=== PATIENT | male | born 1940 | race Caucasian/White ===

== ENCOUNTER 2021-05-02 09:05 | Observation (INO) | payer MEDICARE, OTHER, SELFPAY ==
[2021-05-02] VITALS (7 sets, daily range): BP systolic 111–151; BP diastolic 71–102; PULSE 70–116; RESP 16–23; TEMP 36.3–37.2; O2SAT 95–100
[2021-05-02 09:26] LABS: Basophils Absolute Auto 0.1 K/mm3 (0.0-0.1); Eosinophils Absolute Auto 0.3 K/mm3 (0-0.3); Eosinophils Percent Auto 3.3 % (0-4.4); Hematocrit 45.2 % (42.0-52.0); Hemoglobin 14.6 g/dL (14.0-18.0); Immature Granulocyte Absolute 0.04 K/mm3 (0.00-0.031); Immature Granulocyte Percent A 0.5 % (0-0.5); Lymphocytes Absolute Auto 1.59 K/mm3 (0.9-3.2); Lymphocytes Percent Auto 19.3 % (18.3-44.2); Mean Corpuscular HGB Conc 32.3 g/dl (32-36); Mean Corpuscular Hemoglobin 29.9 pg (26-34); Mean Corpuscular Volume 92.6 fl (80-100); Mean Platelet Volume 9.8 fl (7.4-10.4); Monocytes Absolute Auto 0.9 K/mm3 (0.1-0.6); Monocytes Percent Auto 11.1 % (2.6-8.5); Neutrophils Absolute Auto 5.3 K/mm3 (1.3-6.7); Neutrophils Percent Auto 64.8 % (45.5-73.1); Platelet Count Result 180 k/mm3 (150-375); Red Blood Count 4.88 M/mm3 (4.6-6.20); Red Cell Distribution Width 13.4 % (11.5-14.5); White Blood Count 8.2 K/mm3 (4.5-10.0)
[2021-05-02 09:34] LABS: Alanine Aminotransferase 26 U/L (4-50); Albumin Level 3.7 g/dL (3.5-5.1); Alkaline Phosphatase 106 U/L (38-126); Anion Gap 9 mmol/L (8-16); Aspartate Amino Transferase 24 U/L (17-59); Bilirubin,Total 0.9 mg/dL (0.2-1.3); Blood Urea Nitrogen 26 mg/dL (9-20); Calcium 8.9 mg/dL (8.4-10.2); Carbon Dioxide 22 mmol/L (22-30); Chloride 109 mmol/L (98-107); Estimated CRCL calculation 64 ml/min; Estimated Glomerular Filt Rate > 60; Glucose 100 mg/dL (65-110); Potassium 4.4 mmol/L (3.4-5.0); Sodium 140 mmol/L (137-145)
[2021-05-02 09:39] LABS: INR 1.5; Prothrombin Time 17.4 Seconds (11.1-14.7)
--- NOTE | 2021-05-02 10:30 | PC.NURSE ---
Informed Dr bishop pt needs evaluated
--- NOTE | 2021-05-02 11:25 | PC.NURSE ---
Informed Dr Riggs - pt here over 2 hours needs to be evaluated.
--- NOTE | 2021-05-02 11:39 | ED.GENADULT ---
HPI - General Adult General Chief complaint: GI Bleed Stated complaint: Rectal Bleeding Time Seen by Provider: 05/02/21 10:26 Source: patient History of Present Illness HPI narrative: Patient is a 80 y/o male complaining of rectal bleeding since this morning. He states that bleeding consists of bright red blood. He has had 4 episodes of bleeding. He is on Xarelto for A fib, which may have exacerbated his bleeding. Related Data Home Medications Medication Instructions Recorded Confirmed rivaroxaban 20 mg tablet 20 mg PO DAILY 09/07/19 06/21/20 Allergies Allergy/AdvReac Type Severity Reaction Status Date / Time pollen extracts Allergy Unknown Sneezing Verified 05/02/21 15:22 erythromycin base AdvReac Unknown Nausea Verified 05/02/21 15:22 Review of Systems Constitutional: Constitutional: Denies chills, Denies fever(s), Denies headache(s) and Denies weakness Eyes: Eyes: Denies blurry vision ENT: Denies headache(s) and Denies neck pain Cardiovascular: Cardiovascular: Denies chest pain and Denies dyspnea Respiratory: Respiratory: Denies cough and Denies dyspnea Gastrointestinal: Gastrointestinal: Denies abdominal pain, Reports hematochezia, Denies diarrhea, Denies nausea and Denies vomiting Genitourinary: Genitourinary: Denies hematuria and Denies dysuria Musculoskeletal: Musculoskeletal: Denies back pain and Denies neck pain Neurologic: Denies headache(s) and Denies weakness PMFSH Surgical History Surgical History H/O arthroscopy H/O cataract extraction H/O spinal fusion History of appendectomy History of knee replacement History of knee replacement Family History Family History Mother Hypertension Other Family history of allergic disorder No family history of cardiovascular disease Social History Social History Smoking status: Never smoker Alcohol intake: current Drinks per week: 7 Substance use: never Gender identity (if verbalized by the patient): Male Spiritual care concerns: No Exam Const: General: no acute distress and well developed Orientation/consciousness: oriented to person, oriented to place, oriented to time and patient oriented x3 HENMT: Head: normocephalic Ears: external ears normal General nose exam: Normal external nose present Eyes: General: appearance normal, both eyes and all related structures Conjunctivae: conjunctivae normal Neck: Neck: normal visual inspection and full ROM Chest: Chest palpation & inspection: normal inspection of the chest and no tenderness Resp: Effort & Inspection: normal respiratory effort Auscultation: clear to auscultation bilaterally Cardio: Rate: regular rate Rhythm: abnormal rhythm irregularly irregular GI: GI Palp: No abdominal tenderness and Yes Soft to palpation Rectal Exam: Abnormal stool present seema blood Skin: General skin exam: normal color and turgor normal Neuro: General: oriented to person, oriented to place, oriented to time and patient oriented x3 Cognition (Neuro): normal cognition Extrem: General: normal to inspection, full ROM and no pedal edema Psych: Appearance: grossly normal Mental Status: mental status grossly normal Affect: normal affect Course Consultations Consultation #1: Discussed with Dr. Farmer, who agrees to consult. Date: 05/02/21 Time: 11:45 Consultation #2: Discussed with Dr. Saravia, who agrees to admit. Date: 05/02/21 Time: 12:54 Vital Signs Vital signs: Vital Signs Temperature 37.2 C 05/02/21 09:10 Pulse Rate 107 H 05/02/21 09:10 Respiratory Rate 23 H 05/02/21 09:10 Blood Pressure 151/102 H 05/02/21 09:10 Pulse Oximetry 97 05/02/21 09:10 Temperature 37.2 C 05/02/21 09:10 Pulse Rate 101 H 05/02/21 13:49 Respiratory Rate 16 05/02/21 13:49 Blood Pressure 135/88 05/02/21 13:49 Pulse
--- NOTE | 2021-05-02 11:41 | ECG_ITS ---
Measurements Intervals [place] Rate: 83 P: ME: 0 QRS: -14 QRSD: 90 T: -1 QT: 391 QTc: 462 Interpretive Statements ATRIAL FIBRILLATION BORDERLINE T WAVE ABNORMALITY- ANT/INF LEADS ABNORMAL ECG Electronically Signed On 05-02-2021 13:13:42 CDT by Blair Fernandez D.O.
[2021-05-02] MEDS: SODIUM CHLORIDE 0.9% IV 1,000 ML 999 ML IV CONT (11:50)
[2021-05-02 13:33] LABS: Hemoglobin 14.2 g/dL (14.0-18.0)
--- NOTE | 2021-05-02 15:15 | ADMGEN ---
This patient, Dion Amaya, was admitted to Medical Room 241-. Patient/family oriented to hospital policies and general routines including ID bracelet, bed and alarms, visiting hours, pain management, procedures, bathroom and other care routines, personal items, smoking policy, room service/diet, and visiting hours. Information on how to activate the Rapid Response Team has been discussed. Patient/Family are encouraged to report perceived risks to care and to ask questions if they do not understand what they are told or what they should do.
--- NOTE | 2021-05-02 16:21 | WPDGICN ---
Assessment and Plan Assessment and plan (1) Rectal bleeding: Code(s): K62.5 - Hemorrhage of anus and rectum Status: Acute Assessment and Plan: several episodes of rectal bleeding, could be perianal but also history of colon diverticulosis- patient is agreeable to have colonoscopy tomorrow. Will order bowel prep. hold xarelto for now (2) GI bleed: Qualifiers: GI bleed type/associated pathology: unspecified gastrointestinal hemorrhage type Qualified Code(s): K92.2 - Gastrointestinal hemorrhage, unspecified Code(s): K92.2 - Gastrointestinal hemorrhage, unspecified Status: Acute Assessment and Plan: trend hb, supportive care (3) Atrial fibrillation: Qualifiers: Atrial fibrillation type: unspecified chronic Qualified Code(s): I48.20 - Chronic atrial fibrillation, unspecified Code(s): I48.91 - Unspecified atrial fibrillation Status: Acute (4) Blood thinned due to long-term anticoagulant use: Code(s): Z79.01 - residential (current) use of anticoagulants Status: Acute (5) Colon, diverticulosis: Code(s): K57.30 - Diverticulosis of large intestine without perforation or abscess without bleeding Status: Acute Assessment and Plan: wonder if could be source of bleeding GI Consult Note Consult date/time: 05/02/21 16:21 Reason for consult: rectal bleeding HPI: Dion Amaya is a 80 year old male with history of HTN, Afib on xarelto, remote history of diverticulitis years ago with last colonoscopy about 7-8 years ago. He is here with new onset of rectal bleeding up to 7 times with clots, he got concerned and came to ER. Denies abdominal pain, no nausea. No fever, dizziness. His hb was 14 but given advanced age, ongoing rectal bleeding in setting of using blood thinners he is admitted to the hospital. Denies previous GIB. Review of Systems Constitutional: Constitutional: Denies chills Eyes: Eyes: Denies blurry vision ENT: Reports Normal hearing present Cardiovascular: Cardiovascular: Denies chest pain Respiratory: Respiratory: Denies dyspnea Gastrointestinal: Gastrointestinal: Reports hematochezia and Denies nausea Genitourinary: Genitourinary: Denies dysuria Musculoskeletal: Musculoskeletal: Denies neck pain Integumentary/Breasts: Skin/Breast: Denies dry skin Neurologic: Denies headache(s) Psychiatric: Psychiatric: Reports no additional psychiatric complaints PMFSH Past Medical History Medical History (Updated 05/02/21 @ 16:30 by Yazan Cabezas MD) Blood thinned due to long-term anticoagulant use Colon, diverticulosis Rectal bleeding Surgical History Surgical History H/O arthroscopy H/O cataract extraction H/O spinal fusion History of appendectomy History of knee replacement History of knee replacement Family History Family History Mother Hypertension Other Family history of allergic disorder No family history of cardiovascular disease Social History Social History Smoking status: Never smoker Alcohol intake: current Drinks per week: 7 Substance use: never Gender identity (if verbalized by the patient): Male Spiritual care concerns: No Meds Home Medications and Allergies Home Medications Medication Instructions Recorded Confirmed Type rivaroxaban 20 mg tablet 20 mg PO DAILY 09/07/19 06/21/20 History atorvastatin 10 mg tablet 10 mg PO DAILY #90 tablet 05/30/20 06/21/20 Rx cholecalciferol (vitamin D3) 25 1,000 unit PO DAILY #90 cap 06/21/20 06/21/20 Rx mcg (1,000 unit) capsule furosemide 20 mg tablet 20 mg PO QAM PRN #100 tablet 11/30/20 11/30/20 Rx diltiazem HCl 120 mg capsule,24 120 mg PO DAILY #90 cap 01/17/21 Rx hr,extended release doxazosin 4 mg tablet 4 mg PO DAILY #90 tablet 03/09/21
--- NOTE | 2021-05-02 16:33 | PM.IMHP ---
H&P: HPI History of Present Illness Date/Time: 05/02/21 16:33 Chief Complaint: bleeding from the rectum Narrative: 80-year-old male with past medical history of hypertension, persistent atrial fibrillation on chronic anticoagulation with Xarelto who presented to the ER with bright red blood per rectum. The patient reported that he woke up from a sound sleep due to abdominal discomfort because he knew he had to have a bowel movement. When he went to the bathroom he passed bright red blood per rectum in large amounts. His stool was mostly blood with some blood clots. He had never had any similar episodes of bleeding. His last colonoscopy was 7 or 8 years ago and was unremarkable per the patient's report. He reports that he had 3 bowel movements a home with fairly large amount of blood present. Since he has arrived at the hospital he has had another 4 5 bowel movements with varying amounts of blood present. He denies any significant abdominal pain but does report that his abdomen feels as if it grumbling rate before he has to have a bowel movement. He has not been having any fevers or chills. He has not had any recent change in his medications. He denies any recent travel or unusual food or water exposures. He does report that and he has at times been getting lightheaded when he stands up but has been moving slowly. He denies any loss of consciousness, chest pain or palpitations. At the time of my evaluation the patient's heart rate was modestly elevated but he had missed his morning dose of Cardizem. He denies any hematuria, unusual petechiae or bruising. He denies any chest pain or shortness of breath. He is vaccinated against COVID-19. Review of Systems Review of Systems: 12 systems were reviewed with pertinent positives and negatives per HPI. Except as documented in the HPI, all other systems were reviewed and are negative. 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urgery due to spinal stenosis in 1995, bhavna laminectomy and L2-L3 and L4-L5 for spinal decompression 2006 with repeat surgery in 2006 for spinal fusion History of appendectomy History of cardiac radiofrequency ablation (~09/2017) History of left knee replacement (~2011) History of right knee joint replacement (~2016) History of shoulder surgery (~2005) left rotator cuff repair History of ventral hernia repair (~2012) Status post cataract extraction of both eyes with insertion of intraocular lens (~2012) Family History Family History Mother Hypertension Asthma Social History Social History Smoking status: Never smoker Alcohol intake: current Drinks per week: 7 Substance use: never Gender identity (if verbalized by the patient): Male Spiritual care concerns: No Meds Home Medications and Allergies Home Medications Medication Instructions Recorded Confirmed Type rivaroxaban 20 mg tablet 20 mg PO DAILY 09/07/19 05/02/21 History furosemide 20 mg tablet 20 mg PO QAM PRN #100 tablet 11/30/20 05/02/21 Rx doxazosin 4 mg tablet 4 mg PO DAILY #90 tablet 03/09/21 05/02/21 Rx Calcium + D 1,200 mg PO DAILY 05/02/21 05/02/21 History amoxicillin 500 mg PO ONCE PRN 05/02/21 05/02/21 History atorvastatin 5 mg PO DAILY 05/02/21 05/02/21 History brimonidine 1 drp EACH
[2021-05-02] MEDS: BISACODYL 5 MG TABLET EC 20 MG PO (18:01)
[2021-05-02] MEDS: polyethylene glycoL 3350 238 GM BOTTLE PO (18:01)
[2021-05-02] MEDS: METOPROLOL TARTRATE 50 MG TAB PO (18:02)
[2021-05-02 20:22] LABS: Hematocrit 42.2 % (42.0-52.0); Hemoglobin 13.9 g/dL (14.0-18.0)
[2021-05-02] MEDS: DORZOLAMIDE/TIMOLOL OPHTH SOL 10 ML BOTTLE 1 DROP EACH EYE (22:21)
[2021-05-02] MEDS: LATANOPROST 0.005% OP SOLN 2.5 ML BTL 1 DROP EACH EYE (22:21)
[2021-05-02] MEDS: BRIMONIDINE TARTRATE 0.2% OP SOLN 5 ML BTL 1 DROP EACH EYE (22:21)
[2021-05-02] MEDS: diphenhydrAMINE HCl CAP 25 MG CAPSULE PO (22:22)
[2021-05-03] VITALS (13 sets, daily range): BP systolic 86–125; BP diastolic 55–89; PULSE 64–98; RESP 16–20; TEMP 35.7–36.7; O2SAT 95–100
[2021-05-03 01:05] LABS: Hematocrit 39.4 % (42.0-52.0); Hemoglobin 13.1 g/dL (14.0-18.0)
[2021-05-03] MEDS: MAGNESIUM CITRATE 300 ML BTL PO (04:58)
[2021-05-03 06:52] LABS: Hematocrit 40.6 % (42.0-52.0); Mean Corpuscular Hemoglobin 30.1 pg (26-34); Mean Platelet Volume 9.7 fl (7.4-10.4); Platelet Count Result 169 k/mm3 (150-375); Red Blood Count 4.32 M/mm3 (4.6-6.20); Red Cell Distribution Width 13.7 % (11.5-14.5); White Blood Count 9.3 K/mm3 (4.5-10.0)
[2021-05-03 07:15] LABS: Anion Gap 7 mmol/L (8-16); Blood Urea Nitrogen 20 mg/dL (9-20); Calcium 8.6 mg/dL (8.4-10.2); Carbon Dioxide 20 mmol/L (22-30); Chloride 109 mmol/L (98-107); Estimated CRCL calculation 70 ml/min; Estimated Glomerular Filt Rate > 60; Glucose 106 mg/dL (65-110); Potassium 4.6 mmol/L (3.4-5.0); Sodium 136 mmol/L (137-145)
[2021-05-03] MEDS: DOXAZOSIN MESYLATE 4 MG TABLET PO (09:43)
[2021-05-03] MEDS: METOPROLOL TARTRATE 50 MG TAB PO (09:43)
[2021-05-03] MEDS: DORZOLAMIDE/TIMOLOL OPHTH SOL 10 ML BOTTLE 1 DROP EACH EYE (09:44)
[2021-05-03] MEDS: BRIMONIDINE TARTRATE 0.2% OP SOLN 5 ML BTL 1 DROP EACH EYE (09:44)
--- NOTE | 2021-05-03 12:51 | WPDANESEPPF ---
Anes - Initial Pre Proc Eval Procedure: Operation Date: 05/03/21 14:15 Proposed Procedures p Colonoscopy - Yazan Cabezas MD Date/Time: 05/03/21 12:51 Pre Op Diagnosis: GI BLEED Patient Data Age: 80 Gender: M Height: 1.78 m Weight: 119.5 kg Last Vital Signs Temp 36.7 C 05/03/21 09:35 Pulse 88 05/03/21 12:00 Resp 18 05/03/21 09:35 BP 113/75 05/03/21 09:35 Pulse Ox 98 05/03/21 09:35 Allergies Allergy/AdvReac Type Severity Reaction Status Date / Time pollen extracts Allergy Unknown Sneezing Verified 05/03/21 12:54 erythromycin base AdvReac Unknown Nausea Verified 05/03/21 12:54 Home Medications Medication Instructions Recorded Confirmed Type rivaroxaban 20 mg tablet 20 mg PO DAILY 09/07/19 05/02/21 History furosemide 20 mg tablet 20 mg PO QAM PRN #100 tablet 11/30/20 05/02/21 Rx doxazosin 4 mg tablet 4 mg PO DAILY #90 tablet 03/09/21 05/02/21 Rx Calcium + D 1,200 mg PO DAILY 05/02/21 05/02/21 History amoxicillin 500 mg PO ONCE PRN 05/02/21 05/02/21 History atorvastatin 5 mg PO DAILY 05/02/21 05/02/21 History brimonidine 1 drp EACH EYE BID 05/02/21 05/02/21 History diltiazem HCl [Tiadylt ER] 120 mg PO DAILY 05/02/21 05/02/21 History diphenhydramine HCl [Allergy 25 mg PO HS 05/02/21 05/02/21 History (diphenhydramine)] docusate sodium 100 mg PO DAILY 05/02/21 05/02/21 History dorzolamide-timolol 1 drp EACH EYE BID 05/02/21 05/02/21 History fexofenadine 180 mg PO DAILY 05/02/21 05/02/21 History latanoprost 1 drp EACH EYE HS 05/02/21 05/02/21 History metoprolol tartrate 50 mg PO BID 05/02/21 05/02/21 History vitamin E 500 mg PO DAILY 05/02/21 05/02/21 History Laboratory Tests 05/02/21 05/02/21 05/03/21 13:26 20:16 00:51 WBC RBC Hgb 14.2 g/dL g/dL 13.9 g/dL L g/dL 13.1 g/dL L g/dL (14.0-18.0) (14.0-18.0) (14.0-18.0) Hct 43.0 % % 42.2 % % 39.4 % L % (42.0-52.0) (42.0-52.0) (42.0-52.0) MCV MCH MCHC RDW Plt Count MPV Sodium Potassium Chloride Carbon Dioxide Anion Gap BUN Creatinine Estim Creat Clear Calc Estimated GFR Glucose Calcium 05/03/21 05/03/21 06:43 06:43 WBC 9.3 K/mm3 K/mm3 (4.5-10.0) RBC 4.32 M/mm3 L M/mm3 (4.6-6.20) Hgb 13.0 g/dL L g/dL (14.0-18.0) Hct 40.6 % L % (42.0-52.0) MCV 94.0 fl fl (80-100) MCH 30.1 pg pg (26-34) MCHC 32.0 g/dl g/dl (32-36) RDW 13.7 % % (11.5-14.5) Plt Count 169 k/mm3 k/mm3 (150-375) MPV 9.7 fl fl (7.4-10.4) Sodium 136 mmol/L L mmol/L (137-145) Potassium 4.6 mmol/L mmol/L (3.4-5.0) Chloride 109 mmol/L H mmol/L (98-107) Carbon Dioxide 20 mmol/L L mmol/L (22-30) Anion Gap 7 mmol/L L mmol/L (8-16) BUN 20 mg/dL mg/dL (9-20) Creatinine 1.00 mg/dL mg/dL (0.7-1.3) Estim Creat Clear Calc 70 ml/min ml/min Estimated GFR > 60 (59 - ) Glucose 106 mg/dL mg/dL (65-110) Calcium 8.6 mg/dL mg/dL (8.4-10.2) Patient hx anesthesia problems: none Family hx anesthesia problems: none [facility] Past Medical History Medical History (Updated 05/03/21 @ 01:54 by Tonya Saravia DO) Atrial fibrillation Blood thinned due to long-term anticoagulant use BPH NOS 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
[2021-05-03] MEDS: LACTATED RINGERS 1,000 ML 150 ML IV CONT (13:15)
--- NOTE | 2021-05-03 15:07 | PM.DS ---
DS: Admitting Diagnosis Admitting Diagnosis GI bleed DS: Discharge Diagnosis Discharge Diagnosis (1) Rectal bleeding: Code(s): K62.5 - Hemorrhage of anus and rectum Status: Acute (2) Blood thinned due to long-term anticoagulant use: Code(s): Z79.01 - buttermaker continuous churn (current) use of anticoagulants Status: Acute (3) Atrial fibrillation with rapid ventricular response: Code(s): I48.91 - Unspecified atrial fibrillation Status: Acute (4) Diverticulosis: Code(s): K57.90 - Diverticulosis of intestine, part unspecified, without perforation or abscess without bleeding Status: Acute (5) Hemorrhoids: Code(s): K64.9 - Unspecified hemorrhoids Status: Acute DS: Summary Hospital Course Hospital Course: DOS 05/04/21 Patient is a 80-year-old male who presented emergency room for bright red blood per rectum who is on Xarelto for AFib. in the ER, the vitals were temperature 37.2?, pulse 107, respiratory rate 23, blood pressure 151/102, pulse ox 97 room air. Initial hemoglobin 14.2, hematocrit 43.0. BMP relatively normal. Patient was admitted to the hospitalist service and underwent a colonoscopy which showed diverticulosis without evidence of chronic bleed and hemorrhoids. It was suspected that either his hemorrhoids or diverticulosis did cause some bleeding which was exacerbated by his Xarelto. his hemoglobin remained relatively stable at 13.0 and the patient was not having any further symptoms.the day of discharge The patient was feeling great and ready to go. He was educated about the worrisome signs and symptoms come back to emergency room for and was discharged stable condition. He is to hold his Xarelto for 5 days per GI and he was educated about stroke symptoms to come back to emergency room for. Status at Discharge Functional status at discharge: independent ambulation Overall status at discharge: patient is back to baseline Time Spent with Patient Time attestation: Total time spent providing and/or coordinating discharge services:38 min Time spent: Greater than 30 minutes Exam Narrative: General: Well developed well nourished patient in NAD HEENT: normocephalic Neck: supple Neuro: Alert and oriented x4 CV: Irregularly irregular Resp:CTA Abd: Soft, non distended. No pain to palpation. Positive bowel sounds Extremities: No swelling, erythema, or pain to palpation. DS: Data Data Completed and Pending Pending studies at discharge: Pending at discharge 05/03/21 14:20 Surgical [PTH] Routine Labs on day of discharge: Labs from last 24 hours 05/03/21 05/03/21 05/03/21 06:43 06:43 00:51 WBC 9.3 RBC 4.32 L Hgb 13.0 L 13.1 L Hct 40.6 L 39.4 L MCV 94.0 MCH 30.1 MCHC 32.0 RDW 13.7 Plt Count 169 MPV 9.7 Sodium 136 L Potassium 4.6 Chloride 109 H Carbon Dioxide 20 L Anion Gap 7 L BUN 20 Creatinine 1.00 Estim Creat Clear Calc 70 Estimated GFR > 60 Glucose 106 Calcium 8.6 05/02/21 20:16 WBC RBC Hgb 13.9 L Hct 42.2 MCV MCH MCHC RDW Plt Count MPV Sodium Potassium Chloride Carbon Dioxide Anion Gap BUN Creatinine Estim Creat Clear Calc Estimated GFR Glucose Calcium Discharge Plan Discharge Attending physician on discharge: Rosy Jones Consulting providers: Yazan Cabezas Discharging Clinician: Chata Jimenez Patient Disposition: Home, Self-Care Activity: as tolerated Diet: regular Discharge Instructions: -As discussed, hold your Xarelto for 5 additional days - continue MiraLax daily as needed to avoid constipation -If you have stroke like symptoms which include: numbness/tingling to any part of the body, asymmetrical features, problems with speech, problems with word-finding, problems with balance or walking, or worsened confusion call 911 - follow-up with your primary care physician in 1-2 [email or web address]
== END 2021-05-03 17:04 | disposition home or self-care (01) ==
LOC: ANHED 10:26 → ANH2MED 13:40
PROVIDERS: Internal Medicine Gastroenterology; Admitting Provider Internal Medicine; Emergency Provider Emergency Medicine; PCP Family Medicine; Visit Provider Student in an Organized Health Care Education/Training Program
PROC: 0DJD8ZZ Inspection of Lower Intestinal Tract, Via Natural or Artificial Opening Endoscopic (ICD-10-PCS; CPT 45378; principal; 2021-05-03 14:15)
DX: K57.30 Diverticulosis of large intestine without perforation or abscess without bleeding (principal); K64.8 Other hemorrhoids; K63.5 Polyp of colon; I48.91 Unspecified atrial fibrillation; I10 Essential (primary) hypertension; Z79.01 Long term (current) use of anticoagulants; Z96.653 Presence of artificial knee joint, bilateral
CPT/HCPCS: 45380; 36415; 80048; 80053; 85014; 85018; 85025; 85027; 85610; 85730; 86850; 86900; 86901; 88305; 93005; 96360; 96361; 99285; A9270; G0378; J2704; J7030; J7120